=== PATIENT | female | born 1990 | race Caucasian/White ===

== ENCOUNTER 2019-11-03 20:22 | Emergency (ER) | payer OTHER, MEDICAID, SELFPAY ==
[2019-11-03 20:34] VITALS: BP 137/85; PULSE 90; RESP 18; TEMP 37.1; O2SAT 99; BMI 29.0
--- NOTE | 2019-11-03 21:10 | ED_ITS ---
HPI - General Adult General Chief complaint: Urogenital-Female Stated complaint: SYPHILIS Time Seen by Provider: 11/03/19 21:04 Source: patient Mode of arrival: Ambulatory Limitations: no limitations History of Present Illness HPI narrative: Patient is a 28-year-old female. She was recently seen in outside facility where she was treated for gonorrhea and chlamydia. She is also currently being treated for bacterial vaginosis. She is here with her partner who was also recently treated for gonorrhea and chlamydia at that same emergency department visit. He had a test performed which he received a call today from the health department stating that he was positive for syphilis. She is here with him for treatment of syphilis. She is not exhibiting any symptoms of syphilis. Related Data Allergies Allergy/AdvReac Type Severity Reaction Status Date / Time No Known Drug Allergies Allergy Verified 11/03/19 20:34 Review of Systems Constitutional Constitutional: Denies fever(s) Gastrointestinal Gastrointestinal: Denies abdominal pain Genitourinary Genitourinary: Denies dysuria and Reports vaginal discharge Integumentary/Breasts Skin/Breast: Denies lesions and Denies rash Hematologic/Lymphatic Hematologic/Lymphatic: Denies easy bleeding and Denies easy bruising Patient History Medical History Bacterial vaginosis (Acute) Social History Smoking Status: Current every day smoker Smoking Status: Current every day smoker tobacco type: cigarettes alcohol intake frequency: holidays/special occasions only Substance Use Type: methamphetamine Exam Initial Vital Signs Initial Vital Signs: Vital Signs Temperature 98.8 F 11/03/19 20:34 Pulse Rate 90 11/03/19 20:34 Respiratory Rate 18 11/03/19 20:34 Blood Pressure 137/85 11/03/19 20:34 Pulse Oximetry 99 11/03/19 20:34 Const General: cooperative and comfortable Limitations: mental status not altered HENMT Head: normal to inspection and normocephalic Resp Effort & Inspection: normal respiratory effort Cardio Rate: regular rate Neuro General: alert and awake Cognition: normal cognition Extrem General: normal to inspection and capillary refill normal Course Orders Ordered: Discontinued Medications Penicillin G Benzathine (Bicillin L-A) 2,400,000 unit IM NOW ONE Stop: 11/03/19 21:11 Last Admin: 11/03/19 21:34 Dose: 2,400,000 unit Documented by: DONNA Vital Signs Vital signs: Vital Signs - 8 hr 11/03/19 20:34 Temperature 98.8 F Pulse Rate 90 Respiratory Rate 18 Blood Pressure 137/85 Pulse Oximetry 99 Medical Decision Making MDM Narrative Medical decision making narrative: I feel given her clinical presentation the just going ahead and treating her for potential syphilis is not unreasonable. She was given 2.4 million units of Bicillin. She was instructed to continue to take the rest of her medications. She was given return precautions and follow- up instructions. She expressed understanding and agreement Discharge Plan Departure Patient Disposition: Home Clinical Impression: Syphilis Discharge Date/Time: 11/03/19 22:09 Instructions: DI for Syphilis Activity Restrictions/Additional Instructions: Recommend that you abstain from sexual activity until all symptoms are resolved. You can contact the health department for follow-up. Continue all of your medications as directed
[2019-11-03] MEDS: PENICILLIN G BENZATHINE 1,200,000 UNIT/2 ML SYRINGE 2400000 UNIT IM (21:34)
== END 2019-11-03 22:09 | disposition home or self-care (01) ==
PROVIDERS: Emergency Provider Emergency Medicine
DX: A53.9 Syphilis, unspecified (principal)
CPT/HCPCS: 96372; 99283; J0561